=== PATIENT | male | born 1940 | race Caucasian/White ===

== ENCOUNTER 2018-06-18 21:29 | Inpatient (IN) | payer MEDICARE, BC ==
[2018-06-18] MEDS ORDERED: DOCUSATE SODIUM 100 MG CAP PO (23:00)
[2018-06-18] MEDS ORDERED: ACETAMINOPHEN 325 MG TAB PO (23:30)
[2018-06-18] MEDS ORDERED: BISACODYL 10 MG SUPP PR (23:30)
[2018-06-18] MEDS ORDERED: MAGNESIUM HYDROXIDE 30ML CUP PO (23:30)
[2018-06-18] MEDS ORDERED: LACTULOSE 30ML CUP PO (23:30)
[2018-06-18] MEDS: ATORVASTATIN 40 MG TAB PO (23:53)
[2018-06-18] MEDS: BRIMONIDINE 0.15% 5 ML OPH BOTH EYES (23:53)
[2018-06-19] MEDS: LATANOPROST 0.005% 2.5 ML OPH BOTH EYES ×2 (00:15→20:57)
[2018-06-19] MEDS ORDERED: PENDING SANTYL ORDER FOR WOUND CARE XX (00:30)
[2018-06-19 06:43] LABS: ADD MAN DIFF? NO
[2018-06-19 06:47] LABS: WHITE BLOOD COUNT 5.8 10^3/ul (4.8-10.8)
[2018-06-19 06:47] LABS: BASOPHILS % 0.3 % (0.0-2.0); EOSINOPHILS # 0.1 10^3/ul (0.0-0.5); EOSINOPHILS % 1.7 % (0.0-7.0); HEMATOCRIT 24.6 % (42.0-52.0); LYMPHOCYTES # 1.3 10^3/ul (0.8-2.9); LYMPHOCYTES % 22.8 % (15.0-51.0); MEAN CORPUSCULAR HEMOGLOBIN 33.1 pg (29.0-33.0); MEAN CORPUSCULAR HGB CONC 32.5 g/dl (32.0-37.0); MEAN CORPUSCULAR VOLUME 101.7 fl (82.0-101.0); MONOCYTE # 0.4 10^3/ul (0.3-0.9); MONOCYTES % 6.2 % (0.0-11.0); NEUTROPHILS % 68.5 % (39.0-77.0); PLATELET COUNT 169 10^3/UL (140-415); RED BLOOD COUNT 2.42 10^6/ul (4.70-6.10); RED CELL DISTRIBUTION WIDTH 14.1 % (11.5-14.5)
[2018-06-19] MEDS: ACCU-CHEK XX ×4 (07:05→21:01)
[2018-06-19 07:11] LABS: ALANINE AMINOTRANSFERASE 13 IU/L (13-69); ALBUMIN 3.8 g/dl (3.3-4.9); ALBUMIN/GLOBULIN RATIO 1.08; ALKALINE PHOSPHATASE 59 IU/L (42-121); ANION GAP 10 (5-13); ASPARTATE AMINO TRANSFERASE 21 IU/L (15-46); BILIRUBIN,INDIRECT 0.3 mg/dl (0-1.1); BILIRUBIN,TOTAL 0.3 mg/dl (0.2-1.3); BLOOD UREA NITROGEN 52 mg/dl (7-20); CALCIUM 9.2 mg/dl (8.4-10.2); CARBON DIOXIDE 38 mmol/L (21-31); CHLORIDE 92 mmol/L (97-110); CREATININE 7.24 mg/dl (0.61-1.24); GLUCOSE 110 mg/dl (70-220); POTASSIUM 5.1 mmol/L (3.5-5.1); SODIUM 140 mmol/L (135-144); TOTAL PROTEIN 7.3 g/dl (6.1-8.1)
[2018-06-19 07:17] LABS: HEMOGLOBIN A1C 5.7 % (0-5.9)
[2018-06-19] MEDS: INSULIN ASPART [NOVOLOG] 3 ML PEN SC ×4 (07:35→21:00)
[2018-06-19] MEDS: ESCITALOPRAM 10 MG TAB PO (09:26)
[2018-06-19] MEDS: BRIMONIDINE 0.15% 5 ML OPH BOTH EYES ×2 (09:26→20:58)
[2018-06-19] MEDS: LUBIPROSTONE 24 MCG CAP PO (09:27)
[2018-06-19] MEDS: MEGESTROL 40 MG TAB PO (09:27)
[2018-06-19] MEDS: CLOPIDOGREL 75 MG TAB PO (09:27)
[2018-06-19] MEDS: DOCUSATE SODIUM 100 MG CAP PO ×2 (09:27→21:00)
[2018-06-19] MEDS: CINACALCET 30 MG TAB PO (09:27)
[2018-06-19 10:37] LABS: TOTAL IRON BINDING CAPACITY 214 ug/dl (241-421)
[2018-06-19] MEDS: LISINOPRIL 20 MG TAB PO ×2 (11:03→21:01)
[2018-06-19 11:25] LABS: % IRON SATURATION 24 % SAT (22-52); IRON 52 ug/dl (35-150)
[2018-06-19] MEDS: ONDANSETRON 4 MG INJ IM (15:30)
[2018-06-19] MEDS: ASPIRIN (EC) 81 MG TAB PO (19:00)
[2018-06-19] MEDS: ATORVASTATIN 40 MG TAB PO (21:00)
[2018-06-19] MEDS ORDERED: LATANOPROST 0.005% 2.5 ML OPH BOTH EYES (21:00)
[2018-06-19] MEDS: SENNA TAB PO (21:00)
[2018-06-19] MEDS ORDERED: ATORVASTATIN 40 MG TAB PO (22:00)
[2018-06-20 07:25] LABS: ADD MAN DIFF? NO
[2018-06-20 07:30] LABS: WHITE BLOOD COUNT 5.4 10^3/ul (4.8-10.8)
[2018-06-20 07:30] LABS: BASOPHILS % 0.2 % (0.0-2.0); EOSINOPHILS # 0.1 10^3/ul (0.0-0.5); EOSINOPHILS % 1.7 % (0.0-7.0); HEMATOCRIT 24.9 % (42.0-52.0); HEMOGLOBIN 8.1 g/dl (14.0-18.0); LYMPHOCYTES # 1.5 10^3/ul (0.8-2.9); LYMPHOCYTES % 28.5 % (15.0-51.0); MEAN CORPUSCULAR HEMOGLOBIN 33.3 pg (29.0-33.0); MEAN CORPUSCULAR HGB CONC 32.5 g/dl (32.0-37.0); MEAN CORPUSCULAR VOLUME 102.5 fl (82.0-101.0); MEAN PLATELET VOLUME 11.3 fl (7.4-10.4); MONOCYTE # 0.4 10^3/ul (0.3-0.9); MONOCYTES % 7.6 % (0.0-11.0); NEUTROPHIL # 3.3 10^3/ul (1.6-7.5); NEUTROPHILS % 61.4 % (39.0-77.0); PLATELET COUNT 178 10^3/UL (140-415); RED BLOOD COUNT 2.43 10^6/ul (4.70-6.10); RED CELL DISTRIBUTION WIDTH 14.2 % (11.5-14.5)
[2018-06-20] MEDS: INSULIN ASPART [NOVOLOG] 3 ML PEN SC ×4 (07:35→22:00)
[2018-06-20 07:46] LABS: ANION GAP 12 (5-13); BLOOD UREA NITROGEN 73 mg/dl (7-20); CALCIUM 9.2 mg/dl (8.4-10.2); CARBON DIOXIDE 37 mmol/L (21-31); CHLORIDE 90 mmol/L (97-110); CREATININE 9.35 mg/dl (0.61-1.24); GLUCOSE 111 mg/dl (70-220); MAGNESIUM 2.8 mg/dl (1.7-2.5); PHOSPHORUS 4.3 mg/dl (2.5-4.9); POTASSIUM 5.8 mmol/L (3.5-5.1); SODIUM 139 mmol/L (135-144)
[2018-06-20] MEDS: ACCU-CHEK XX ×4 (07:52→22:00)
[2018-06-20] MEDS: CLOPIDOGREL 75 MG TAB PO (08:26)
[2018-06-20] MEDS: LISINOPRIL 20 MG TAB PO ×2 (08:26→22:00)
[2018-06-20] MEDS: LUBIPROSTONE 24 MCG CAP PO (08:26)
[2018-06-20] MEDS: DOCUSATE SODIUM 100 MG CAP PO ×2 (08:26→22:09)
[2018-06-20] MEDS: ESCITALOPRAM 10 MG TAB PO (08:26)
[2018-06-20] MEDS: CINACALCET 30 MG TAB PO (08:27)
[2018-06-20] MEDS: BRIMONIDINE 0.15% 5 ML OPH BOTH EYES ×2 (08:27→22:11)
[2018-06-20] MEDS: ASPIRIN (EC) 81 MG TAB PO (08:28)
[2018-06-20 10:22] LABS: HEPATITIS B SURFACE ANTIGEN NEGATIVE (NEGATIVE)
[2018-06-20] MEDS: ONDANSETRON 4 MG INJ IM (16:09)
[2018-06-20] MEDS: SENNA TAB PO (22:09)
[2018-06-20] MEDS: ATORVASTATIN 40 MG TAB PO (22:10)
[2018-06-20] MEDS: LATANOPROST 0.005% 2.5 ML OPH BOTH EYES (22:11)
[2018-06-20] MEDS: EPOETIN ALFA-EPBX (ESRD) 10,000 UNIT/ML VIAL SC (22:17)
[2018-06-21] MEDS: SOD CHLORIDE 0.9% 500 ML IV (00:15)
[2018-06-21] MEDS: ALBUMIN HUMAN 25% 100 ML IV ×2 (01:15→02:25)
[2018-06-21 07:04] LABS: ANION GAP 11 (5-13); BLOOD UREA NITROGEN 27 mg/dl (7-20); CALCIUM 8.4 mg/dl (8.4-10.2); CARBON DIOXIDE 33 mmol/L (21-31); CHLORIDE 96 mmol/L (97-110); GLUCOSE 95 mg/dl (70-220); MAGNESIUM 2.2 mg/dl (1.7-2.5); PHOSPHORUS 3.2 mg/dl (2.5-4.9); POTASSIUM 4.4 mmol/L (3.5-5.1); SODIUM 140 mmol/L (135-144)
[2018-06-21] MEDS: ACCU-CHEK XX ×4 (07:05→21:46)
[2018-06-21] MEDS: INSULIN ASPART [NOVOLOG] 3 ML PEN SC ×4 (07:35→21:00)
[2018-06-21] MEDS: ASPIRIN (EC) 81 MG TAB PO (09:00)
[2018-06-21] MEDS ORDERED: LISINOPRIL 20 MG TAB PO (09:00)
[2018-06-21] MEDS: BRIMONIDINE 0.15% 5 ML OPH BOTH EYES ×2 (10:24→21:39)
[2018-06-21] MEDS: ESCITALOPRAM 10 MG TAB PO (10:25)
[2018-06-21] MEDS: CLOPIDOGREL 75 MG TAB PO (10:25)
[2018-06-21] MEDS: CINACALCET 30 MG TAB PO (10:26)
[2018-06-21] MEDS: DOCUSATE SODIUM 100 MG CAP PO ×2 (10:26→21:38)
[2018-06-21] MEDS: LUBIPROSTONE 24 MCG CAP PO (10:26)
[2018-06-21] MEDS: SENNA TAB PO (21:38)
[2018-06-21] MEDS: ATORVASTATIN 40 MG TAB PO (21:39)
[2018-06-21] MEDS: LATANOPROST 0.005% 2.5 ML OPH BOTH EYES (21:45)
[2018-06-22] MEDS: ACCU-CHEK XX ×4 (07:05→21:00)
[2018-06-22] MEDS: INSULIN ASPART [NOVOLOG] 3 ML PEN SC ×5 (07:35→20:53)
[2018-06-22] MEDS: BRIMONIDINE 0.15% 5 ML OPH BOTH EYES ×2 (09:18→20:49)
[2018-06-22] MEDS: LUBIPROSTONE 24 MCG CAP PO (09:19)
[2018-06-22] MEDS: DOCUSATE SODIUM 100 MG CAP PO ×2 (09:19→21:00)
[2018-06-22] MEDS: CLOPIDOGREL 75 MG TAB PO (09:20)
[2018-06-22] MEDS: ESCITALOPRAM 10 MG TAB PO (09:20)
[2018-06-22] MEDS: ASPIRIN (EC) 81 MG TAB PO (09:20)
[2018-06-22] MEDS: CINACALCET 30 MG TAB PO (09:20)
[2018-06-22 13:27] LABS: ADD UMIC YES; UR ASCORBIC ACID NEGATIVE (NEGATIVE); UR BILIRUBIN (Dip) NEGATIVE (NEGATIVE); UR BLOOD (Dip) NEGATIVE (NEGATIVE); UR CLARITY CLEAR (CLEAR); UR COLOR YELLOW (YELLOW); UR GLUCOSE (Dip) 1+ mg/dL (NEGATIVE); UR KETONES (Dip) NEGATIVE (NEGATIVE); UR LEUKOCYTE ESTERASE (Dip) NEGATIVE Leu/ul (NEGATIVE); UR NITRITE (Dip) NEGATIVE (NEGATIVE); UR RBC 1 /HPF (0-5); UR SPECIFIC GRAVITY (Dip) 1.008 (1.003-1.030); UR TOTAL PROTEIN (Dip) 2+ mg/dl (NEGATIVE); UR UROBILINOGEN (Dip) NEGATIVE (NEGATIVE); UR WBC 1 /HPF (0-5)
[2018-06-22] MEDS: EPOETIN ALFA-EPBX (ESRD) 10,000 UNIT/ML VIAL SC (17:59)
[2018-06-22] MEDS: LATANOPROST 0.005% 2.5 ML OPH BOTH EYES (20:49)
[2018-06-22] MEDS: SENNA TAB PO (21:00)
[2018-06-22] MEDS: ATORVASTATIN 40 MG TAB PO (21:00)
[2018-06-23] MEDS: ACCU-CHEK XX ×4 (07:05→21:00)
[2018-06-23] MEDS: INSULIN ASPART [NOVOLOG] 3 ML PEN SC ×4 (07:35→20:16)
[2018-06-23] MEDS: ASPIRIN (EC) 81 MG TAB PO (09:00)
[2018-06-23] MEDS: CLOPIDOGREL 75 MG TAB PO (09:28)
[2018-06-23] MEDS: LUBIPROSTONE 24 MCG CAP PO (09:28)
[2018-06-23] MEDS: BRIMONIDINE 0.15% 5 ML OPH BOTH EYES ×2 (09:28→20:02)
[2018-06-23] MEDS: MULTIVIT/CA CARB/B CMPLX/FA TAB PO (09:28)
[2018-06-23] MEDS: DOCUSATE SODIUM 100 MG CAP PO ×2 (09:28→20:08)
[2018-06-23] MEDS: ESCITALOPRAM 10 MG TAB PO (09:28)
[2018-06-23] MEDS: CINACALCET 30 MG TAB PO (09:28)
[2018-06-23] MEDS: ONDANSETRON 4 MG INJ IM (13:55)
[2018-06-23] MEDS: ATORVASTATIN 40 MG TAB PO (20:01)
[2018-06-23] MEDS: SENNA TAB PO (20:03)
[2018-06-23] MEDS: LATANOPROST 0.005% 2.5 ML OPH BOTH EYES (20:16)
[2018-06-24] MEDS: INSULIN ASPART [NOVOLOG] 3 ML PEN SC ×5 (07:35→20:22)
[2018-06-24] MEDS: ACCU-CHEK XX ×5 (07:38→20:22)
[2018-06-24] MEDS: BRIMONIDINE 0.15% 5 ML OPH BOTH EYES ×2 (08:27→20:21)
[2018-06-24] MEDS: LUBIPROSTONE 24 MCG CAP PO (08:27)
[2018-06-24] MEDS: CINACALCET 30 MG TAB PO (08:29)
[2018-06-24] MEDS: CLOPIDOGREL 75 MG TAB PO (08:29)
[2018-06-24] MEDS: DOCUSATE SODIUM 100 MG CAP PO ×2 (08:32→20:21)
[2018-06-24] MEDS: ESCITALOPRAM 10 MG TAB PO (08:33)
[2018-06-24] MEDS: MULTIVIT/CA CARB/B CMPLX/FA TAB PO (08:33)
[2018-06-24] MEDS: ASPIRIN (EC) 81 MG TAB PO (08:33)
[2018-06-24] MEDS: LATANOPROST 0.005% 2.5 ML OPH BOTH EYES (20:21)
[2018-06-24] MEDS: ATORVASTATIN 40 MG TAB PO (20:22)
[2018-06-24] MEDS: SENNA TAB PO (20:22)
[2018-06-24] MEDS: MEGESTROL (40 MG/ML) 10ML CUP PO (20:26)
[2018-06-25 07:27] LABS: ANION GAP 10 (5-13); BLOOD UREA NITROGEN 45 mg/dl (7-20); CALCIUM 8.7 mg/dl (8.4-10.2); CARBON DIOXIDE 31 mmol/L (21-31); CHLORIDE 99 mmol/L (97-110); CREATININE 8.65 mg/dl (0.61-1.24); GLUCOSE 104 mg/dl (70-220); MAGNESIUM 2.4 mg/dl (1.7-2.5); PHOSPHORUS 2.7 mg/dl (2.5-4.9); POTASSIUM 5.8 mmol/L (3.5-5.1); SODIUM 140 mmol/L (135-144)
[2018-06-25] MEDS: INSULIN ASPART [NOVOLOG] 3 ML PEN SC ×4 (07:35→21:04)
[2018-06-25] MEDS: ACCU-CHEK XX ×4 (07:53→21:04)
[2018-06-25] MEDS: MEGESTROL (40 MG/ML) 10ML CUP PO (08:23)
[2018-06-25] MEDS: BRIMONIDINE 0.15% 5 ML OPH BOTH EYES ×2 (08:23→20:59)
[2018-06-25] MEDS: DOCUSATE SODIUM 100 MG CAP PO ×2 (08:24→20:59)
[2018-06-25] MEDS: LUBIPROSTONE 24 MCG CAP PO (08:24)
[2018-06-25] MEDS: CINACALCET 30 MG TAB PO (08:24)
[2018-06-25] MEDS: ESCITALOPRAM 10 MG TAB PO (08:24)
[2018-06-25] MEDS: MULTIVIT/CA CARB/B CMPLX/FA TAB PO (08:24)
[2018-06-25] MEDS: CLOPIDOGREL 75 MG TAB PO (08:24)
[2018-06-25] MEDS: ASPIRIN (EC) 81 MG TAB PO (08:24)
[2018-06-25] MEDS: LATANOPROST 0.005% 2.5 ML OPH BOTH EYES (20:58)
[2018-06-25] MEDS: SENNA TAB PO (21:00)
[2018-06-25] MEDS: ATORVASTATIN 40 MG TAB PO (21:00)
[2018-06-25] MEDS: EPOETIN ALFA-EPBX (ESRD) 10,000 UNIT/ML VIAL SC (21:06)
[2018-06-26 07:11] LABS: ADD MAN DIFF? NO
[2018-06-26 07:14] LABS: BASOPHILS % 0.3 % (0.0-2.0); EOSINOPHILS # 0.1 10^3/ul (0.0-0.5); EOSINOPHILS % 1.3 % (0.0-7.0); HEMATOCRIT 23.3 % (42.0-52.0); HEMOGLOBIN 7.5 g/dl (14.0-18.0); LYMPHOCYTES # 1.7 10^3/ul (0.8-2.9); MEAN CORPUSCULAR HGB CONC 32.2 g/dl (32.0-37.0); MEAN CORPUSCULAR VOLUME 102.6 fl (82.0-101.0); MONOCYTE # 0.5 10^3/ul (0.3-0.9); MONOCYTES % 8.1 % (0.0-11.0); NEUTROPHIL # 3.7 10^3/ul (1.6-7.5); NEUTROPHILS % 61.8 % (39.0-77.0); PLATELET COUNT 202 10^3/UL (140-415); RED BLOOD COUNT 2.27 10^6/ul (4.70-6.10); RED CELL DISTRIBUTION WIDTH 14.1 % (11.5-14.5)
[2018-06-26] MEDS: INSULIN ASPART [NOVOLOG] 3 ML PEN SC ×4 (07:35→20:50)
[2018-06-26] MEDS: ACCU-CHEK XX ×4 (07:50→20:52)
[2018-06-26] MEDS: BRIMONIDINE 0.15% 5 ML OPH BOTH EYES ×2 (07:58→20:50)
[2018-06-26] MEDS: MEGESTROL (40 MG/ML) 10ML CUP PO (07:58)
[2018-06-26] MEDS: CINACALCET 30 MG TAB PO (07:58)
[2018-06-26 07:59] LABS: ANION GAP 9 (5-13); BLOOD UREA NITROGEN 21 mg/dl (7-20); CALCIUM 8.7 mg/dl (8.4-10.2); CARBON DIOXIDE 34 mmol/L (21-31); CHLORIDE 97 mmol/L (97-110); CREATININE 4.88 mg/dl (0.61-1.24); GLUCOSE 97 mg/dl (70-220); MAGNESIUM 2.1 mg/dl (1.7-2.5); POTASSIUM 4.2 mmol/L (3.5-5.1); SODIUM 140 mmol/L (135-144)
[2018-06-26] MEDS: LUBIPROSTONE 24 MCG CAP PO (07:59)
[2018-06-26] MEDS: DOCUSATE SODIUM 100 MG CAP PO ×2 (07:59→20:51)
[2018-06-26] MEDS: ESCITALOPRAM 10 MG TAB PO (07:59)
[2018-06-26] MEDS: MULTIVIT/CA CARB/B CMPLX/FA TAB PO (07:59)
[2018-06-26] MEDS: CLOPIDOGREL 75 MG TAB PO (07:59)
[2018-06-26] MEDS: ASPIRIN (EC) 81 MG TAB PO (08:03)
[2018-06-26] MEDS: NEUTRA-PHOS 250 MG PACKET PO (12:28)
[2018-06-26] MEDS: LATANOPROST 0.005% 2.5 ML OPH BOTH EYES (20:50)
[2018-06-26] MEDS: ATORVASTATIN 40 MG TAB PO (20:51)
[2018-06-26] MEDS: SENNA TAB PO (20:52)
[2018-06-27] MEDS: ACCU-CHEK XX ×4 (07:05→21:36)
[2018-06-27] MEDS: INSULIN ASPART [NOVOLOG] 3 ML PEN SC ×4 (07:35→21:00)
[2018-06-27] MEDS: LUBIPROSTONE 24 MCG CAP PO (09:35)
[2018-06-27] MEDS: DOCUSATE SODIUM 100 MG CAP PO ×2 (09:35→21:32)
[2018-06-27] MEDS: MULTIVIT/CA CARB/B CMPLX/FA TAB PO (09:35)
[2018-06-27] MEDS: BRIMONIDINE 0.15% 5 ML OPH BOTH EYES ×2 (09:35→21:33)
[2018-06-27] MEDS: CINACALCET 30 MG TAB PO (09:36)
[2018-06-27] MEDS: ESCITALOPRAM 10 MG TAB PO (09:36)
[2018-06-27] MEDS: MEGESTROL (40 MG/ML) 10ML CUP PO (09:36)
[2018-06-27] MEDS: CLOPIDOGREL 75 MG TAB PO (09:36)
[2018-06-27] MEDS: SENNA TAB PO (21:00)
[2018-06-27] MEDS: ATORVASTATIN 40 MG TAB PO (21:32)
[2018-06-27] MEDS: LATANOPROST 0.005% 2.5 ML OPH BOTH EYES (21:33)
[2018-06-27] MEDS: HEPARIN 5,000 UNIT/1 ML VIAL SC (21:35)
[2018-06-27] MEDS: EPOETIN ALFA-EPBX (ESRD) 10,000 UNIT/ML VIAL SC (21:38)
[2018-06-28] MEDS: ACCU-CHEK XX ×4 (07:05→21:00)
[2018-06-28] MEDS: INSULIN ASPART [NOVOLOG] 3 ML PEN SC ×4 (07:35→21:00)
[2018-06-28] MEDS: MEGESTROL (40 MG/ML) 10ML CUP PO (08:12)
[2018-06-28] MEDS: CINACALCET 30 MG TAB PO (08:15)
[2018-06-28] MEDS: ESCITALOPRAM 10 MG TAB PO (08:15)
[2018-06-28] MEDS: DOCUSATE SODIUM 100 MG CAP PO ×2 (08:15→20:01)
[2018-06-28] MEDS: LUBIPROSTONE 24 MCG CAP PO (08:15)
[2018-06-28] MEDS: MULTIVIT/CA CARB/B CMPLX/FA TAB PO (08:15)
[2018-06-28] MEDS: CLOPIDOGREL 75 MG TAB PO (08:15)
[2018-06-28] MEDS: HEPARIN 5,000 UNIT/1 ML VIAL SC ×2 (08:16→20:43)
[2018-06-28] MEDS: BRIMONIDINE 0.15% 5 ML OPH BOTH EYES ×2 (08:17→19:58)
[2018-06-28 15:16] LABS: PROSTATE SPECIFIC ANTIGEN < 0.1 ng/ml (0.0-4.0)
[2018-06-28] MEDS: ATORVASTATIN 40 MG TAB PO (20:01)
[2018-06-28] MEDS: LATANOPROST 0.005% 2.5 ML OPH BOTH EYES (20:02)
[2018-06-28] MEDS: SENNA TAB PO (21:00)
[2018-06-29] MEDS: ONDANSETRON 4 MG INJ IM (04:34)
[2018-06-29] MEDS: ACCU-CHEK XX ×4 (07:05→21:00)
[2018-06-29] MEDS: INSULIN ASPART [NOVOLOG] 3 ML PEN SC ×4 (07:35→20:33)
[2018-06-29 07:38] LABS: ADD MAN DIFF? NO
[2018-06-29 07:47] LABS: BASOPHILS % 0.2 % (0.0-2.0); EOSINOPHILS # 0.1 10^3/ul (0.0-0.5); EOSINOPHILS % 1.4 % (0.0-7.0); HEMATOCRIT 23.8 % (42.0-52.0); HEMOGLOBIN 7.5 g/dl (14.0-18.0); LYMPHOCYTES # 1.8 10^3/ul (0.8-2.9); LYMPHOCYTES % 27.7 % (15.0-51.0); MEAN CORPUSCULAR HEMOGLOBIN 33.5 pg (29.0-33.0); MEAN CORPUSCULAR HGB CONC 31.5 g/dl (32.0-37.0); MEAN CORPUSCULAR VOLUME 106.3 fl (82.0-101.0); MONOCYTE # 0.5 10^3/ul (0.3-0.9); MONOCYTES % 7.2 % (0.0-11.0); NEUTROPHIL # 4.2 10^3/ul (1.6-7.5); NEUTROPHILS % 62.6 % (39.0-77.0); NUCLEATED RED BLOOD CELLS% 0.5 /100WBC (0.0-0.0); PLATELET COUNT 199 10^3/UL (140-415); RED BLOOD COUNT 2.24 10^6/ul (4.70-6.10); RED CELL DISTRIBUTION WIDTH 15.4 % (11.5-14.5)
[2018-06-29 07:47] LABS: WHITE BLOOD COUNT 6.7 10^3/ul (4.8-10.8)
[2018-06-29 08:02] LABS: ANION GAP 11 (5-13); BLOOD UREA NITROGEN 40 mg/dl (7-20); CALCIUM 8.5 mg/dl (8.4-10.2); CARBON DIOXIDE 32 mmol/L (21-31); CHLORIDE 97 mmol/L (97-110); CREATININE 6.85 mg/dl (0.61-1.24); GLUCOSE 95 mg/dl (70-220); MAGNESIUM 2.4 mg/dl (1.7-2.5); PHOSPHORUS 2.1 mg/dl (2.5-4.9); POTASSIUM 5.4 mmol/L (3.5-5.1); SODIUM 140 mmol/L (135-144)
[2018-06-29] MEDS: MEGESTROL (40 MG/ML) 10ML CUP PO (08:51)
[2018-06-29] MEDS: CINACALCET 30 MG TAB PO (08:51)
[2018-06-29] MEDS: ESCITALOPRAM 10 MG TAB PO (08:51)
[2018-06-29] MEDS: BRIMONIDINE 0.15% 5 ML OPH BOTH EYES ×2 (08:51→20:15)
[2018-06-29] MEDS: MULTIVIT/CA CARB/B CMPLX/FA TAB PO (08:52)
[2018-06-29] MEDS: LUBIPROSTONE 24 MCG CAP PO (08:52)
[2018-06-29] MEDS: CLOPIDOGREL 75 MG TAB PO (08:52)
[2018-06-29] MEDS: DOCUSATE SODIUM 100 MG CAP PO ×2 (08:52→20:42)
[2018-06-29] MEDS: HEPARIN 5,000 UNIT/1 ML VIAL SC ×2 (08:54→20:35)
[2018-06-29] MEDS: EPOETIN ALFA-EPBX (ESRD) 10,000 UNIT/ML VIAL SC (18:59)
[2018-06-29] MEDS: ATORVASTATIN 40 MG TAB PO (20:33)
[2018-06-29] MEDS: LATANOPROST 0.005% 2.5 ML OPH BOTH EYES (20:33)
[2018-06-29] MEDS: SENNA TAB PO (20:48)
[2018-06-30] MEDS: INSULIN ASPART [NOVOLOG] 3 ML PEN SC ×4 (07:35→21:09)
[2018-06-30] MEDS: ACCU-CHEK XX ×4 (08:00→21:30)
[2018-06-30] MEDS: MEGESTROL (40 MG/ML) 10ML CUP PO (08:54)
[2018-06-30] MEDS: LUBIPROSTONE 24 MCG CAP PO (08:54)
[2018-06-30] MEDS: CLOPIDOGREL 75 MG TAB PO (08:54)
[2018-06-30] MEDS: DOCUSATE SODIUM 100 MG CAP PO ×2 (08:54→20:21)
[2018-06-30] MEDS: MULTIVIT/CA CARB/B CMPLX/FA TAB PO (08:54)
[2018-06-30] MEDS: CINACALCET 30 MG TAB PO (08:54)
[2018-06-30] MEDS: ESCITALOPRAM 10 MG TAB PO (08:55)
[2018-06-30] MEDS: HEPARIN 5,000 UNIT/1 ML VIAL SC ×2 (08:58→20:23)
[2018-06-30] MEDS: BRIMONIDINE 0.15% 5 ML OPH BOTH EYES ×2 (09:03→20:21)
[2018-06-30] MEDS: LATANOPROST 0.005% 2.5 ML OPH BOTH EYES (20:21)
[2018-06-30] MEDS: SENNA TAB PO (20:21)
[2018-06-30] MEDS: ATORVASTATIN 40 MG TAB PO (20:22)
[2018-07-01] MEDS: INSULIN ASPART [NOVOLOG] 3 ML PEN SC ×4 (07:35→20:37)
[2018-07-01] MEDS: ACCU-CHEK XX ×4 (07:53→20:38)
[2018-07-01] MEDS: DOCUSATE SODIUM 100 MG CAP PO ×2 (09:00→20:26)
[2018-07-01] MEDS: MEGESTROL (40 MG/ML) 10ML CUP PO (10:35)
[2018-07-01] MEDS: LUBIPROSTONE 24 MCG CAP PO (10:39)
[2018-07-01] MEDS: CLOPIDOGREL 75 MG TAB PO (10:39)
[2018-07-01] MEDS: CINACALCET 30 MG TAB PO (10:39)
[2018-07-01] MEDS: MULTIVIT/CA CARB/B CMPLX/FA TAB PO (10:39)
[2018-07-01] MEDS: ESCITALOPRAM 10 MG TAB PO (10:39)
[2018-07-01] MEDS: HEPARIN 5,000 UNIT/1 ML VIAL SC ×2 (10:42→20:35)
[2018-07-01] MEDS: BRIMONIDINE 0.15% 5 ML OPH BOTH EYES ×2 (10:43→20:27)
[2018-07-01] MEDS: ATORVASTATIN 40 MG TAB PO (20:26)
[2018-07-01] MEDS: SENNA TAB PO (20:26)
[2018-07-01] MEDS: LATANOPROST 0.005% 2.5 ML OPH BOTH EYES (20:27)
[2018-07-02] MEDS: ACCU-CHEK XX ×4 (07:05→20:57)
[2018-07-02] MEDS: INSULIN ASPART [NOVOLOG] 3 ML PEN SC ×4 (07:35→20:56)
[2018-07-02] MEDS: CINACALCET 30 MG TAB PO (08:21)
[2018-07-02] MEDS: LUBIPROSTONE 24 MCG CAP PO (08:21)
[2018-07-02] MEDS: ESCITALOPRAM 10 MG TAB PO (08:21)
[2018-07-02] MEDS: MULTIVIT/CA CARB/B CMPLX/FA TAB PO (08:21)
[2018-07-02] MEDS: MEGESTROL (40 MG/ML) 10ML CUP PO (08:21)
[2018-07-02] MEDS: DOCUSATE SODIUM 100 MG CAP PO ×2 (08:22→20:49)
[2018-07-02] MEDS: CLOPIDOGREL 75 MG TAB PO (08:22)
[2018-07-02] MEDS: BRIMONIDINE 0.15% 5 ML OPH BOTH EYES ×2 (08:22→20:50)
[2018-07-02] MEDS: HEPARIN 5,000 UNIT/1 ML VIAL SC ×2 (08:24→20:55)
[2018-07-02] MEDS: ATORVASTATIN 40 MG TAB PO (20:48)
[2018-07-02] MEDS: SENNA TAB PO (20:50)
[2018-07-02] MEDS: EPOETIN ALFA-EPBX (ESRD) 10,000 UNIT/ML VIAL SC (20:53)
[2018-07-02] MEDS: LATANOPROST 0.005% 2.5 ML OPH BOTH EYES (20:57)
[2018-07-03] MEDS: INSULIN ASPART [NOVOLOG] 3 ML PEN SC (07:35)
[2018-07-03] MEDS: ACCU-CHEK XX (07:45)
[2018-07-03] MEDS: MEGESTROL (40 MG/ML) 10ML CUP PO (08:29)
[2018-07-03] MEDS: BRIMONIDINE 0.15% 5 ML OPH BOTH EYES (08:29)
[2018-07-03] MEDS: ESCITALOPRAM 10 MG TAB PO (08:30)
[2018-07-03] MEDS: DOCUSATE SODIUM 100 MG CAP PO (08:30)
[2018-07-03] MEDS: CINACALCET 30 MG TAB PO (08:31)
[2018-07-03] MEDS: MULTIVIT/CA CARB/B CMPLX/FA TAB PO (08:31)
[2018-07-03] MEDS: CLOPIDOGREL 75 MG TAB PO (08:31)
[2018-07-03] MEDS: LUBIPROSTONE 24 MCG CAP PO (08:31)
[2018-07-03] MEDS: HEPARIN 5,000 UNIT/1 ML VIAL SC (08:36)
== END 2018-07-03 12:10 | disposition home health service (06) | DRG 56 ==
LOC: VRC 21:29
PROVIDERS: Physical Medicine & Rehabilitation
PROC: 5A1D70Z Performance of Urinary Filtration, Intermittent, Less than 6 Hours Per Day (ICD-10-PCS; principal; 2018-06-20)
DX: I69.398 Other sequelae of cerebral infarction (principal); N18.6 End stage renal disease; I21.A1 Myocardial infarction type 2; G92 Toxic encephalopathy; I13.2 Hypertensive heart and chronic kidney disease with heart failure and with stage 5 chronic kidney disease, or end stage renal disease; N39.0 Urinary tract infection, site not specified; G93.49 Other encephalopathy; I25.10 Atherosclerotic heart disease of native coronary artery without angina pectoris; D64.9 Anemia, unspecified; F32.9 Major depressive disorder, single episode, unspecified; I35.0 Nonrheumatic aortic (valve) stenosis; R53.81 Other malaise; E83.9 Disorder of mineral metabolism, unspecified; I50.9 Heart failure, unspecified; E87.5 Hyperkalemia; Z85.46 Personal history of malignant neoplasm of prostate; Z99.2 Dependence on renal dialysis; F06.31 Mood disorder due to known physiological condition with depressive features; F01.50 Vascular dementia, unspecified severity, without behavioral disturbance, psychotic disturbance, mood disturbance, and anxiety
CPT/HCPCS: 71045; 80048; 80053; 81001; 82728; 82962; 83036; 83540; 83735; 84100; 84153; 84154; 85025; 87081; 87086; 87340; 90935; 92507; 97110; 97112; 97116; 97163; 97530; 97535; 97542